=== PATIENT | female | born 1985 | race Caucasian/White ===

== ENCOUNTER 2020-05-09 12:10 | Inpatient (IN) | payer BC, OTHER ==
[2020-05-09] MEDS ORDERED: OXYTOCIN 30 UNITS in 0.9% NS 30 UNIT/500 ML INFUS.BAG IVPB ONE (13:30)
[2020-05-09] MEDS: ELECTROLYTE-148 SOLN 1,000 ML IV SCH ×2 (13:40→22:30)
[2020-05-09 13:56] LABS: INR 0.96 (0.83-1.09); PROTHROMBIN TIME (PATIENT) 11.3 SEC (9.7-13.0)
[2020-05-09 13:59] LABS: ACTIVATED PTT 27.1 SECONDS (25.2-36.5)
[2020-05-09] MEDS ORDERED: AMPICILLIN - 2 GM in SODIUM CHLORIDE 100 ML IVPB ONE ×2 (14:00→18:18)
[2020-05-09 14:03] LABS: BASO % 0.2 % (0-2.0); EOS % 0.8 % (0-4.5); HEMATOCRIT 37.2 % (32.4-45.2); HEMOGLOBIN 12.4 GM/dL (10.7-15.3); LYMPH % 18.6 % (8-40); MCH 30.1 pg (25.7-33.7); MCHC 33.5 g/dl (32.0-36.0); MEAN CELL VOLUME 89.9 fl (80-96); MONO % 11.8 % (3.8-10.2); NEUT % 68.6 % (42.8-82.8); PLATELET COUNT 187 K/MM3 (134-434); RBC 4.13 M/mm3 (3.60-5.2); RDW 14.3 % (11.6-15.6); WHITE BLOOD COUNT 10.7 K/mm3 (4.0-10.0)
[2020-05-09] MEDS ORDERED: AMPICILLIN SODIUM 2 GM VIAL ONE (14:04)
[2020-05-09 14:11] VITALS: BMI 31.3
[2020-05-09 14:13] LABS: BLOOD UREA NITROGEN 11.2 mg/dL (7-18); CALCIUM 8.7 mg/dL (8.5-10.1); CREATININE 0.7 mg/dL (0.55-1.3)
[2020-05-09] MEDS: AMPICILLIN - 1 GM in SODIUM CHLORIDE 100 ML IVPB SCH ×2 (18:00→22:15)
[2020-05-09] MEDS ORDERED: AMPICILLIN SODIUM 1 GM VIAL ONE ×2 (18:02→22:21)
--- NOTE | 2020-05-09 18:24 | HP ---
Past Medical History - Primary Care Physician PCP:: Lesli De Jesus - Admission Chief Complaint: AMA. induction History Source: Patient Limitations to Obtaining History: No Limitations - Past Medical History ...: 2 ...Para: 1 ...Term: 1 ...: 0 ...Spon : 0 ...Induced : 0 ...Living Children: 1 ...Multiple Gestation: 0 ...LMP: 08/10/19 ... Weeks Gestation by Dates: 39.0 ...EDC by Dates: 05/16/20 ...EDC by Sono: 05/16/20 - Past Surgical History Past Surgical History: Yes: None Hx Myomectomy: No Hx Transabdominal Cerclage: No - Smoking History Smoking history: Never smoked Have you smoked in the past 12 months: No - Alcohol/Substance Use Hx Alcohol Use: No History of Substance Use: reports: None Home Medications - Allergies Allergies/Adverse Reactions: Allergies Allergy/AdvReac Type Severity Reaction Status Date / Time seafood Allergy Severe Difficulty Uncoded 05/09/20 13:51 Breathing - Home Medications Home Medications: Ambulatory Orders Folic Acid 1 tab PO DAILY 05/09/20 Pnv No.95/Ferrous Fum/Folic AC [ Caplet] 1 tab PO DAILY 05/09/20 Review of Systems - Review of Systems Constitutional: reports: No Symptoms Eyes: reports: No Symptoms HENT: reports: No Symptoms Neck: reports: No Symptoms Cardiovascular: reports: No Symptoms Respiratory: reports: No Symptoms Gastrointestinal: reports: No Symptoms Genitourinary: reports: No Symptoms Breasts: reports: No Symptoms Reported Musculoskeletal: reports: No Symptoms Integumentary: reports: No Symptoms Neurological: reports: No Symptoms Endocrine: reports: No Symptoms Hematology/Lymphatic: reports: No Symptoms Psychiatric: reports: No Symptoms Physical Exam - Maternity Vital Signs: Vital Signs Temperature 97.6 F 05/09/20 18:00 Pulse Rate 68 05/09/20 18:00 Respiratory Rate 20 05/09/20 18:00 Blood Pressure 107/64 05/09/20 18:00 O2 Sat by Pulse Oximetry (%) Constitutional: Yes: Well Nourished, No Distress - Abdominal Exam/OB Category: I Accelerations: None Decelerations: None - Vaginal Exam/OB Vaginal Bleeding: No Dilatation (cm): 3-4 Effacement (%): 100 Amniotic Membrane Status: Intact Presentation: Vertex/Position Station: 0 - Labs Lab Results: CBC, BMP 05/09/20 13:30 05/09/20 13:30 Hemorrhage Risk Assessment - Risk Factors Risk Score: 0 Risk Level: Low Risk Assessment/Plan 39 week Cat 1 Elective induction GBS poitive Plan pitocin mar
[2020-05-09] MEDS ORDERED: OXYTOCIN 30 UNITS in 0.9% NS 30 UNIT/500 ML INFUS.BAG IVPB SCH (18:30)
[2020-05-09] MEDS: BUTORPHANOL TARTRATE 1 MG/ML VIAL IVPB SCH (18:32)
[2020-05-09] MEDS ORDERED: FENTANYL/BUPIVACAINE/NS/PF - PCEA - 50 ML DISP.SYRIN EP ONE (21:35)
[2020-05-09] MEDS ORDERED: PCA PUMP NR ONE (21:36)
[2020-05-09] MEDS ORDERED: BUPIVACAINE HCL/PF 0.25% (2.5MG/ML) 10 ML VIAL ONE (21:52)
[2020-05-09] MEDS: FENTANYL/BUPIVACAINE/NS/PF - PCEA - 50 ML DISP.SYRIN EP SCH (22:10)
[2020-05-09] MEDS ORDERED: NALOXONE HCL 0.4 MG/ML VIAL IVPUSH PRN (22:14)
[2020-05-10] MEDS ORDERED: AMPICILLIN SODIUM 1 GM VIAL ONE ×3 (01:55→07:50)
[2020-05-10] MEDS: AMPICILLIN - 1 GM in SODIUM CHLORIDE 100 ML IVPB SCH ×4 (02:00→16:21)
[2020-05-10] MEDS ORDERED: FENTANYL/BUPIVACAINE/NS/PF - PCEA - 50 ML DISP.SYRIN EP ONE ×2 (03:04→06:15)
[2020-05-10] MEDS: ELECTROLYTE-148 SOLN 1,000 ML IV SCH (06:00)
[2020-05-10] MEDS ORDERED: BUPIVACAINE HCL/PF 0.25% (2.5MG/ML) 10 ML VIAL ONE (06:24)
[2020-05-10] MEDS ORDERED: LIDOCAINE HCL 1% PRESERVATIVE FREE - 30ML VIAL ONE (08:58)
[2020-05-10] MEDS ORDERED: OXYTOCIN 20 UNITS in 0.9% NS 20 UNIT/1,000 ML INFUS.BAG IV ONE (08:58)
--- NOTE | 2020-05-10 09:20 | PN ---
Ante-Partal Exam - Subjective Vital Signs: Vital Signs Temperature 98.2 F 05/10/20 07:00 Pulse Rate 80 05/10/20 08:45 Respiratory Rate 18 05/10/20 08:45 Blood Pressure 129/78 05/10/20 08:45 O2 Sat by Pulse Oximetry (%) 99 05/10/20 08:45 - Exam during Labor Category: I Exam: Vaginal Dilatation (cm): 7 Amniotic Membrane Status: Ruptured Amniotic Fluid: Clear - Intrapartum Hemorrhage Risk Risk Score: 0 Risk Level: Low Risk - Assessment/Plan Assessment/Plan: AMA induction Plan Anticipate vaginal delivery
[2020-05-10] MEDS ORDERED: BENZOCAINE 28 GM HEMORRHOIDAL OINTMENT RC PRN (11:06)
[2020-05-10] MEDS ORDERED: METHYLERGONOVINE MALEATE 0.2 MG/1 ML AMP IM PRN (11:06)
[2020-05-10] MEDS ORDERED: WITCH HAZEL 50% (TUCKS) 40 PAD/JAR PAD TP PRN (11:06)
[2020-05-10] MEDS ORDERED: IBUPROFEN 600 MG TABLET (FP) PO PRN (11:06)
[2020-05-10] MEDS ORDERED: BISACODYL 10 MG SUPP.RECT PR PRN (11:06)
[2020-05-10] MEDS ORDERED: ACETAMINOPHEN 325 MG TABLET (FP) PO PRN (11:06)
[2020-05-10] MEDS ORDERED: BENZOCAINE 20% 57 GM BOTTLE TP PRN (11:06)
--- NOTE | 2020-05-10 11:06 | PN ---
Delivery - Delivery Vaginal Delivery: No Problems Type of Anesthesia: Epidural Episiotomy/Laceration: 1st degree EBL (cc): 300 Delivery, Single - Feeding Plan Initial Plan: Elected not to breastfeed exclusively throughout hospitalization
[2020-05-10] MEDS ORDERED: OXYTOCIN 20 UNITS in 0.9% NS 20 UNIT/1,000 ML INFUS.BAG IV SCH (11:15)
[2020-05-10 12:22] LABS: CORD BASE EXCESS -5.3 mmol/L (0-2); CORD HCO3 21.6 mmHg (20-29); CORD PCO2 47.2 mmHg (30-78); CORD pH 7.279 (7.14-7.44)
[2020-05-10 12:25] LABS: CORD BASE EXCESS -9.9 mmol/L (0-2); CORD pH 7.173 (7.14-7.44)
[2020-05-10] MEDS ORDERED: diphenhydrAMINE HCL 25 MG CAPSULE (FP) PO PRN (14:47)
[2020-05-10] MEDS ORDERED: IBUPROFEN 800 MG/8 ML IJ IVPB PRN (14:47)
[2020-05-10] MEDS ORDERED: SIMETHICONE 80 MG TAB.CHEW (FP) PO PRN (14:47)
[2020-05-10] MEDS ORDERED: SENNOSIDES/DOCUSATE COMBO (SENNA PLUS) TABLET (UD) PO SCH (22:00)
[2020-05-11] MEDS: BUTORPHANOL TARTRATE 1 MG/ML VIAL IVPB SCH ×3 (07:32→07:36)
[2020-05-11] MEDS: FENTANYL/BUPIVACAINE/NS/PF - PCEA - 50 ML DISP.SYRIN EP SCH (07:33)
--- NOTE | 2020-05-11 08:03 | DS ---
Physical Exam-PRODUCTION TECHNOLOGIST Vital Signs: Vital Signs Temperature 97.8 F 05/11/20 05:58 Pulse Rate 73 05/11/20 05:58 Respiratory Rate 20 05/11/20 05:58 Blood Pressure 100/51 L 05/11/20 05:58 O2 Sat by Pulse Oximetry (%) 97 05/11/20 05:58 Constitutional: Yes: Well Nourished, No Distress Neck: Yes: WNL Cardiovascular: Yes: WNL Gastrointestinal: Yes: WNL, Soft ....Post : Yes: Uterus firm, Uterus non-tender Extremities: Yes: WNL Edema: No Psychiatric: Yes: WNL, Alert, Oriented Labs: CBC, BMP 05/09/20 13:30 05/09/20 13:30 Delivery - Delivery Vaginal Delivery: No Problems Type of Anesthesia: Epidural Episiotomy/Laceration: Perineal Extension/lac, 1st degree EBL (cc): 300 Delivery, Single - Stages of Labor Date 1st Stage Initiatied: 05/10/20 Time 1st Stage Initiated: 01:00 Date 2nd Stage Initiated: 05/10/20 Time 2nd Stage Initiated: 09:50 Date of Delivery: 05/10/20 Time of Delivery: 10:17 Time Placenta Delivered: 10:20 Placenta: Yes: Spontaneous - Condition of Plastic Bubble Packer/Range Aide Present: No Infant Gender: Male Position: Left, OA Total Hours ROM (Hrs/Mins): 1h25m - 1 Minute Total Score: 9 5 Minutes Total Score: 9 - [place] Feeding Plan Initial Plan: Elected not to breastfeed exclusively throughout hospitalization Discharge Summary Problems reviewed: Yes Reason For Visit: INDUCTION OF LABOR Procedures: Principal: normal vaginal delivery - Instructions - Home Medications Comprehensive Discharge Medication List: Ambulatory Orders Folic Acid 1 tab PO DAILY 05/09/20 Pnv No.95/Ferrous Fum/Folic AC [ Caplet] 1 tab PO DAILY 05/09/20
[2020-05-11 08:57] LABS: BASO % 0.2 % (0-2.0); HEMOGLOBIN 10.9 GM/dL (10.7-15.3); LYMPH % 18.5 % (8-40); MCH 30.2 pg (25.7-33.7); MCHC 33.9 g/dl (32.0-36.0); MEAN CELL VOLUME 89.2 fl (80-96); MONO % 10.8 % (3.8-10.2); NEUT % 69.5 % (42.8-82.8); PLATELET COUNT 161 K/MM3 (134-434); RBC 3.59 M/mm3 (3.60-5.2); RDW 13.9 % (11.6-15.6)
[2020-05-11] MEDS ORDERED: oxyCODONE HCL 5 MG TABLET PO PRN ×2 (14:47)
[2020-05-11 20:41] VITALS: PULSE 84
[2020-05-12 08:26] VITALS: BP 113/73; TEMP 98.2
== END 2020-05-12 11:30 | disposition home or self-care (01) | DRG 560 ==
LOC: JLDR 12:10 → J3W 05-10 14:30
PROVIDERS: ADMIT Obstetrics & Gynecology; ATTEND Obstetrics & Gynecology
PROC: 10E0XZZ Delivery of Products of Conception, External Approach (ICD-10-PCS; principal; 2020-05-10)
PROC: 0W8NXZZ Division of Female Perineum, External Approach (ICD-10-PCS; 2020-05-10)
DX: O70.0 First degree perineal laceration during delivery (principal); O99.824 Streptococcus B carrier state complicating childbirth; Z3A.39 39 weeks gestation of pregnancy; Z37.0 Single live birth
CPT/HCPCS: 36415; 36600; 59409; 80048; 82803; 85025; 85610; 85730; 86780; 86850; 86900; 86901